=== PATIENT | female | born 1995 | race Caucasian/White ===

== ENCOUNTER 2016-07-08 19:22 | Inpatient (IN) | payer OTHER ==
[~2016-07-08] VITALS: Ht 154.9 cm; Wt 54.3 kg
[~2016-07-08 19:22] MED LIST: CONCERTA36 MG PO; GUMMI BEAR MUL1 EACH PO; IBUPROFEN800 MG PO; Tylenol Extra Streng PO
[2016-07-08 19:59] LABS: HEMATOCRIT 41.4 % (36.0-46.0); MCH 28.2 PG (29.0-34.0); MCHC 33.6 G/DL (30.0-36.0); MEAN PLAT.VOLUME 9.2 uM^3 (9.5-12.4); PLATELET COUNT 393 K/uL (156-360); RBC DIS.WIDTH-CV 14.1 % (11.8-14.6); RBC DIS.WIDTH-SD 42.5 % (39-53); RED BLOOD COUNT 4.93 M/uL (3.80-5.20); WHITE BLOOD COUNT 9.6 K/uL (4.1-10.2)
[2016-07-08 20:10] LABS: CHLORIDE 105 mEq/L (99-109); POTASSIUM 3.7 mEq/L (3.7-5.4); SODIUM 139 mEq/L (136-147)
[2016-07-08 20:12] LABS: GLUCOSE 89 mg/dL (70-99)
[2016-07-08 20:13] LABS: ANION GAP 10 MEQ/L (2-14)
[2016-07-08 20:14] LABS: TOTAL BILIRUBIN 0.8 mg/dL (0.0-1.0)
[2016-07-08 20:16] LABS: ALKALINE PHOSPHATASE 510 IU/L (3-129); GFR ESTIMATE (CALCULATED) > 59 mL/min/
[2016-07-08 20:17] LABS: UREA NITROGEN (BUN) 11 mg/dL (9-23)
[2016-07-08 20:19] LABS: LIPASE 58 U/L (1.0-51.0)
[2016-07-08 20:25] LABS: QUANTITATIVE HCG < 4.0 MIU/ML
[2016-07-08] MEDS ORDERED: SPRINTEC1 EACH PO (23:26)
[2016-07-09 01:41] LABS: ADD MIUA? YES; BILIRUBIN MODERATE; BLOOD NEGATIVE; GLUCOSE (STRIP) NEGATIVE; KETONES NEGATIVE; LEUKOCYTES TRACE; NITRITE POSITIVE; PROTEIN (STRIP) NEGATIVE; SPECIFIC GRAVITY 1.031 (1.000-1.030)
[2016-07-09 01:42] LABS: COLOR AMBER ((YELLOW))
[2016-07-09 02:05] LABS: ICTOTEST NEGATIVE
[2016-07-09 02:11] LABS: EPITHELIAL CELLS 1+; RED BLOOD CELLS NONE SEEN /HPF (0-5); WHITE BLOOD CELLS 0-5 /HPF (0-5)
[2016-07-09 02:12] LABS: BACTERIA 1+; CASTS NONE SEEN /LPF; CRYSTALS NONE SEEN; UCUL ADDED? NO
[2016-07-09 02:13] LABS: MUCUS 2+
[2016-07-09 06:25] LABS: CHLORIDE 113 mEq/L (99-109); EOSINOPHIL (%) 1.8 % (0-5); EOSINOPHIL COUNT 0.2 K/uL (0-0.3); HEMATOCRIT 34.3 % (36.0-46.0); IMMATURE GRANULOCYTE (%) 0.2 % (0.0-0.7); IMMATURE GRANULOCYTE COUNT 0.2 K/uL; LYMPHOCYTE COUNT 2.3 K/uL (1.0-2.8); MCH 28.3 PG (29.0-34.0); MCHC 33.5 G/DL (30.0-36.0); MCV 84.5 FL (83-99); MEAN PLAT.VOLUME 9.7 uM^3 (9.5-12.4); MONOCYTE (%) 7.1 % (3-12); MONOCYTE COUNT 0.7 K/uL (0-0.8); NEUTROPHIL (%) 65.1 % (45-76); NEUTROPHIL COUNT 5.9 K/uL (1.8-6.4); PLATELET COUNT 309 K/uL (156-360); POTASSIUM 3.8 mEq/L (3.7-5.4); RBC DIS.WIDTH-SD 42.2 % (39-53); RED BLOOD COUNT 4.06 M/uL (3.80-5.20); SODIUM 139 mEq/L (136-147); WHITE BLOOD COUNT 9.1 K/uL (4.1-10.2)
[2016-07-09 06:27] LABS: GLUCOSE 97 mg/dL (70-99)
[2016-07-09 06:28] LABS: ANION GAP 8 MEQ/L (2-14)
[2016-07-09 06:31] LABS: ALKALINE PHOSPHATASE 410 IU/L (3-129); GFR ESTIMATE (CALCULATED) > 59 mL/min/
[2016-07-09 06:32] LABS: UREA NITROGEN (BUN) 9 mg/dL (9-23)
[2016-07-09 09:22] VITALS: BP 114/58
[2016-07-09 12:10] VITALS: BP 109/67
[2016-07-09 16:27] VITALS: BP 109/64
[2016-07-09 20:28] VITALS: BP 118/69
[2016-07-09 23:49] VITALS: BP 116/65
[2016-07-10 04:02] VITALS: BP 110/6
[2016-07-10 07:41] LABS: HEMATOCRIT 33.3 % (36.0-46.0); MCH 28.3 PG (29.0-34.0); MCHC 33.3 G/DL (30.0-36.0); MCV 84.9 FL (83-99); MEAN PLAT.VOLUME 9.7 uM^3 (9.5-12.4); PLATELET COUNT 265 K/uL (156-360); RBC DIS.WIDTH-CV 14.2 % (11.8-14.6); RBC DIS.WIDTH-SD 43.7 % (39-53); RED BLOOD COUNT 3.92 M/uL (3.80-5.20); WHITE BLOOD COUNT 6.4 K/uL (4.1-10.2)
[2016-07-10 07:45] VITALS: BP 103/56
[2016-07-10 08:08] LABS: ALKALINE PHOSPHATASE 301 IU/L (3-129); ANION GAP 7 MEQ/L (2-14); CHLORIDE 110 MEQ/L (99-109); GFR ESTIMATE (CALCULATED) > 59 mL/min/; GLUCOSE 148 mg/dL (70-99); LIPASE 146 U/L (1.0-51.0); POTASSIUM 4.1 MEQ/L (3.7-5.4); SAMPLE HEMOLYSIS CHECK 0; SAMPLE ICTERIC CHECK 0; SAMPLE LIPEMIA CHECK 0; SODIUM 138 MEQ/L (136-147); TOTAL BILIRUBIN 0.4 MG/DL (0.0-1.0); UREA NITROGEN (BUN) 5 mg/dL (9-23)
[2016-07-10] MEDS ORDERED: NORCO 5/3251 TABLET PO (09:35)
[2016-07-10 11:49] VITALS: BP 107/67
[2016-07-10 16:56] VITALS: BP 106/54
[2016-07-10 19:30] VITALS: BP 115/55
[2016-07-10 23:51] VITALS: BP 105/61
[2016-07-11 03:20] VITALS: BP 110/58
[2016-07-11 07:30] VITALS: BP 103/58
[2016-07-11 08:13] VITALS: BP 103/58
== END 2016-07-11 13:45 | disposition home or self-care (01) | DRG 418 ==
LOC: EME 19:22 → EDOF 07-09 00:37 → 2EAST 07-09 09:19
PROVIDERS: Hospitalist; Physician Assistant Medical
DX: K80.65 Calculus of gallbladder and bile duct with chronic cholecystitis with obstruction (principal); K31.1 Adult hypertrophic pyloric stenosis; F17.200 Nicotine dependence, unspecified, uncomplicated; Z79.3 Long term (current) use of hormonal contraceptives
CPT/HCPCS: 74300; 74328; 76705; 80053; 81003; 82948; 83690; 84702; 85025; 85027; 87081; 88304; 99281; 99285; C1757; C1769; C2625; J0295; J0330; J1100; J1170; J1644; J2250; J2405; J2765; J3010; J7030; J7042; J7050; S0020; S0028

== ENCOUNTER → 2016-08-26 | Outpatient (CLI) | payer OTHER ==
[~2016-08-26] VITALS: Ht 154.9 cm; Wt 52.6 kg
[~2016-08-26] MED LIST changes: +NORCO 5/3251 TABLET PO; +SPRINTEC1 EACH PO
[2016-08-26 12:55] LABS: AMPHETAMINES QUANT VALUE 0 NG/ML; BARBITUATES QUANT VALUE 0 NG/ML; BENZODIAZEPINES QUANT VALUE 0 NG/ML; BENZODIAZEPINES, URINE SCREEN Negative (200 ng/mL); MARIJUANA QUANT VALUE 0 NG/ML; OPIATES QUANTITATIVE VALUE 0 NG/ML; PHENCYCLIDINE QUANT VALUE 0 NG/ML
== END | disposition home or self-care (01) ==
LOC: AMB 11:44
PROVIDERS: Specialist
PROC: 0FC98ZZ Extirpation of Matter from Common Bile Duct, Via Natural or Artificial Opening Endoscopic (ICD-10-PCS; principal; 2016-08-26)
DX: Z46.89 Encounter for fitting and adjustment of other specified devices (principal); F17.200 Nicotine dependence, unspecified, uncomplicated
CPT/HCPCS: 74330; 80306 90; C1757; J0295; J0330; J1100; J2405; J2765; J3010; J7050

== ENCOUNTER 2016-10-28 23:48 | Emergency (ER) | payer OTHER ==
[~2016-10-28] VITALS: Ht 154.9 cm; Wt 50.9 kg
[2016-10-29 00:19] LABS: HEMATOCRIT 36.8 % (36.0-46.0); MCHC 33.2 G/DL (30.0-36.0); MCV 87.4 FL (83-99); MEAN PLAT.VOLUME 8.8 uM^3 (9.5-12.4); PLATELET COUNT 318 K/uL (156-360); RBC DIS.WIDTH-CV 13.4 % (11.8-14.6); RBC DIS.WIDTH-SD 42.9 % (39-53); RED BLOOD COUNT 4.21 M/uL (3.80-5.20); WHITE BLOOD COUNT 9.7 K/uL (4.1-10.2)
[2016-10-29 00:34] LABS: CHLORIDE 106 mEq/L (99-109); SODIUM 137 mEq/L (136-147)
[2016-10-29 00:36] LABS: GLUCOSE 84 mg/dL (70-99)
[2016-10-29 00:38] LABS: ANION GAP 9 MEQ/L (2-14); TOTAL BILIRUBIN 0.3 mg/dL (0.0-1.0)
[2016-10-29 00:40] LABS: ALKALINE PHOSPHATASE 49 IU/L (3-129); GFR ESTIMATE (CALCULATED) > 59 mL/min/
[2016-10-29 00:41] LABS: UREA NITROGEN (BUN) 13 mg/dL (9-23)
[2016-10-29 00:49] LABS: QUANTITATIVE HCG < 4.0 MIU/ML
[2016-10-29 01:24] LABS: ADD MIUA? NO; BILIRUBIN NEGATIVE; BLOOD NEGATIVE; COLOR YELLOW ((YELLOW)); GLUCOSE (STRIP) NEGATIVE; KETONES 5; LEUKOCYTES NEGATIVE; NITRITE NEGATIVE; PROTEIN (STRIP) 30; SPECIFIC GRAVITY 1.032 (1.000-1.030); UCUL ADDED? NO; UROBILINOGEN 0.2 MG/DL (0.2-1.0)
[2016-10-29] MEDS ORDERED: BENTYL20 MG PO (02:47)
[2016-10-29] MEDS ORDERED: CIPRO500 MG PO (02:47)
[2016-10-29] MEDS ORDERED: ZOFRAN ODT4 MG PO (02:47)
[2016-10-29] MEDS ORDERED: FLAGYL500 MG PO (02:47)
[2016-10-29 03:23] VITALS: BP 108/74
== END 2016-10-29 03:24 | disposition home or self-care (01) ==
LOC: EME 23:48
DX: K52.9 Noninfective gastroenteritis and colitis, unspecified (principal); F17.200 Nicotine dependence, unspecified, uncomplicated
CPT/HCPCS: 74177; 80053; 81003; 84702; 85027; 87493; 87506; 99281; 99285; J7030

== ENCOUNTER 2016-12-30 14:48 | Emergency (ER) | payer OTHER ==
[~2016-12-30] VITALS: Ht 154.9 cm; Wt 48.8 kg
[~2016-12-30 14:48] MED LIST changes: +BENTYL20 MG PO; +CIPRO500 MG PO; +FLAGYL500 MG PO; +ZOFRAN ODT4 MG PO
[2016-12-30] MEDS ORDERED: SILVADENE20 GM TP (17:16)
[2016-12-30 17:31] VITALS: BP 110/71
== END 2016-12-30 18:10 | disposition home or self-care (01) ==
LOC: EME 14:48
DX: T24.231A Burn of second degree of right lower leg, initial encounter (principal); X10.1XXA Contact with hot food, initial encounter; F17.200 Nicotine dependence, unspecified, uncomplicated
CPT/HCPCS: 99281; 99283